=== PATIENT | male | born 1950 | race African-American/Black ===

== ENCOUNTER 2020-05-10 09:58 | Emergency (ER) | payer MEDICARE, OTHER ==
[~2020-05-10] VITALS: Ht 180.3 cm; Wt 80.6 kg
--- NOTE | 2020-05-10 10:35 | NUR ---
PT PLACED ON ALL ROOM MONITORING. PT DESCRIBES DIZZINESS AND POSSIBLE WEAKNESS PRIOR TO GLF ON HARD TILED BATH FLOOR. PT STATES HE THINKS HE "PASSED OUT" FOR A BRIEF MOMENT AND THE LAY ON FLOOR FOR OVER AN HOUR B/C HE WAS UNABLE TO GET UP. PAIN INITIALLY AT BILATERAL KNEES AND R HIP. PAIN CURRENTLY R LOW BACK AND HIP, NO PAIN TO KNEES AT THIS TIME. PT ABLE TO AMBULATE BUT PAINFUL. NO SHORTENING OR ROTATION OF R LEG, CMS INTACT. PT ALSO DESCRIBES SX OF LOOSE STOOL INTERMITTENTLY OVER ONE YEAR. HEAVY ALCOHOL USE, HAD BEEN DRINKING AT TIME OF FALL. WARM BLANKET PROVIDED, CALL LIGHT WITHIN REACH.
[2020-05-10 11:08] LABS: BASOPHILS % (AUTO) 1 % (0-1); EOSINOPHILS % (AUTO) 2 % (1-7); LYMPHOCYTES % (AUTO) 21 % (22-44); MEAN CORPUSCULAR HEMOGLOBIN 35.5 pg (27.5-34.5); MEAN PLATELET VOLUME 7.5 fL (7.4-10.4); MONOCYTES % (AUTO) 16 % (2-9); NEUTROPHILS % (AUTO) 61 % (42-75); PLATELET COUNT 165 x10^3/uL (130-400); RED BLOOD COUNT 4.04 x10^6/uL (4.38-5.82); RED CELL DISTRIBUTION WIDTH 13.9 % (9.4-14.8)
[2020-05-10 11:09] LABS: MD NO
[2020-05-10 11:21] LABS: ALBUMIN 3.5 g/dL (3.4-5.0); ANION GAP 10 mmol/L (5-15); CALCIUM 8.3 mg/dL (8.5-10.1); CHLORIDE 106 mmol/L (98-107); CREATININE 0.71 mg/dL (0.7-1.3)
[2020-05-10 11:24] LABS: TROPONIN I < 0.015 ng/mL (0.000-0.045)
--- NOTE | 2020-05-10 11:36 | NUR ---
ALL RESULTS BACK, PT FOR RECHECK. VSS/UPDATED IN COMPUTER.
--- NOTE | 2020-05-10 12:21 | NUR ---
ADD ON ORDER FOR PELVIS CT. CALL LIGHT ANSWERED, PT UP TO BR WITH SBA. GAIT STEADY, NO DIZZINESS.
--- NOTE | 2020-05-10 13:01 | NUR ---
PT OUTSIDE ROOM, REQUESTING TO LEAVE PRIOR TO CT PELVIS. ERP NOTIFIED, SPOKE WITH PT. PT DECLINING MORE INTERVENTIONS, STATES "I WANT TO GO HOME". DISCHARGE INSTRUCTS PROVIDED TO PT AND SPOUSE. PT AMBULATORY TO DC DESK.
[2020-05-10 13:02] VITALS: BP 157/85
== END 2020-05-10 13:04 | disposition home or self-care (01) ==
LOC: ED 10:53
DX: S70.01XA Contusion of right hip, initial encounter (principal); R42 Dizziness and giddiness; I49.3 Ventricular premature depolarization; I10 Essential (primary) hypertension; F17.210 Nicotine dependence, cigarettes, uncomplicated; X58.XXXA Exposure to other specified factors, initial encounter; Y93.89 Activity, other specified; Y92.89 Other specified places as the place of occurrence of the external cause; Y99.8 Other external cause status
CPT/HCPCS: 36415; 71045; 80048; 82040; 84484; 85025; 93005; 99285